=== PATIENT | female | born 1990 | race Caucasian/White ===

== ENCOUNTER 2017-02-02 14:01 | Emergency (ER) | payer MEDICAID ==
[~2017-02-02] VITALS: Ht 162.6 cm; Wt 81.0 kg
[2017-02-02 19:07] LABS: BASOPHILS % 0.4 % (0.0-2.0); EOSINOPHILS % 2.4 % (0.0-5.0); HEMATOCRIT. 37.3 % (36.0-48.0); HEMOGLOBIN. 12.7 g/dL (12.0-16.0); LYMPHOCYTES % 32.9 % (20.0-50.0); MEAN CORPUSCULAR HEMOGLOBIN 27.4 pg (28.0-32.0); MEAN CORPUSCULAR VOLUME 80.7 fL (81.0-99.0); MEAN PLATELET VOLUME 8.1 fl (7.4-10.4); MONOCYTES % 6.2 % (2.0-8.0); NEUTROPHILS % 58.1 % (40.0-76.0); PLATELET 298 x1000/uL (130-400); RED BLOOD CELL COUNT 4.62 mill/uL (4.2-5.4); RED CELL DISTRIBUTION WIDTH 13.9 % (11.6-14.6)
[2017-02-02 19:07] LABS: CLARITY URINE TURBID (CLEAR); COLOR URINE YELLOW (YELLOW); GLUCOSE URINE NEGATIVE (NEGATIVE); KETONES URINE NEGATIVE (NEGATIVE); LEUKOCYTE ESTERASE URINE NEGATIVE (NEGATIVE); NITRITE URINE NEGATIVE (NEGATIVE); OCCULT BLOOD URINE NEGATIVE (NEGATIVE); PROTEIN URINE NEGATIVE (NEGATIVE); SPECIFIC GRAVITY URINE 1.015 (1.005-1.030)
[2017-02-02 19:12] LABS: CHLORIDE 106 mEq/L (98-107)
[2017-02-02 19:22] LABS: CARBON DIOXIDE 26 mEq/L (21-32)
[2017-02-02 20:00] LABS: B-HCG QUANTITATIVE 1722 mIU/mL (<3)
[2017-02-02 22:14] VITALS: BP 98/61
== END 2017-02-02 22:27 | disposition home or self-care (01) ==
LOC: ER 19:42
DX: O02.1 Missed abortion (principal)
CPT/HCPCS: 36415; 76801; 80048; 81001; 81025; 84702; 85025; 86850; 86900; 99285

== ENCOUNTER 2019-01-06 10:41 | Emergency (ER) | payer MEDICAID ==
[~2019-01-06] VITALS: Ht 162.6 cm; Wt 89.0 kg
[2019-01-06] MEDS ORDERED: ACETAMINOPHEN 325MG TABLET PO STA (11:08)
[2019-01-06] MEDS: LORAZEPAM 1MG TABLET PO ONE (11:13)
[2019-01-06 11:48] VITALS: BP 127/78
[2019-01-06] MEDS: KETOROLAC 60MG/2ML VIAL IM ONE (11:48)
== END 2019-01-06 11:50 | disposition home or self-care (01) ==
LOC: ER 10:41
DX: F41.9 Anxiety disorder, unspecified (principal); R51 Headache; R20.2 Paresthesia of skin; R20.0 Anesthesia of skin
CPT/HCPCS: 81025; 99283